=== PATIENT | female | born 1990 | race Caucasian/White ===

== ENCOUNTER 2017-06-24 23:34 | Outpatient (CLI) | payer OTHER ==
[~2017-06-24] VITALS: Ht 157.5 cm; Wt 90.6 kg
[~2017-06-24 23:34] MED LIST: PREN1TAB49 PO
[2017-06-24] MEDS ORDERED: ASPI-535 PO (23:51)
[2017-06-24 23:52] VITALS: Ht 157.5 cm; Wt 90.6 kg
[2017-06-24 23:54] VITALS: BP 117/68; RESP 18
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
--- NOTE | 2017-06-25 02:12 | RADRPT ---
PROCEDURE: Biophysical profile. CLINICAL INDICATION: Pelvic pain. TECHNIQUE: Multiple sonographic images of the pelvis were obtained with transabdominal technique. Endovaginal evaluation of the cervix was also performed. COMPARISON: No prior studies are available for comparison. FINDINGS: There is twin living intrauterine gestation. The cervix is closed measuring 4.0 cm. The placenta is fundal in location, grade 1. There is no evidence of placenta previa or abruption. Fetus A: Fetus A is in a vertex position. heart tones of 161 beats per minute are identified. There is normal amniotic fluid volume with the maximum vertical pocket measuring 5.4 cm. breathing movements = 2 Gross body movements = 2 tone = 2 Qualitative AFV = 2 Fetus B: Fetus B is in a breech position. heart tones of 166 beats per minute are identified. There is normal amniotic fluid volume with the maximum vertical pocket measuring 7.0 cm. breathing movements = 2 Gross body movements = 2 tone = 2 Qualitative AFV = 2 IMPRESSION: Twin living intrauterine gestation. Biophysical profiles are 8 out of 8 for both fetuses. Close cervix measuring 4.0 cm. .Adonay Duvall MD, MD Date Time Electronically viewed and signed by .Adonay Duvall MD, MD on 06/25/2017 02:12 .T/
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
== END 2017-06-25 02:30 | disposition home or self-care (01) ==
LOC: OBT 23:34 → L-D 23:34 → OBT 06-25 02:30
PROVIDERS: ATTEND Obstetrics & Gynecology
DX: O26.893 Other specified pregnancy related conditions, third trimester (principal); Z3A.29 29 weeks gestation of pregnancy; M54.5 Low back pain
CPT/HCPCS: 76817; 76818; Z7500; G0463

== ENCOUNTER 2017-07-26 15:16 | Inpatient (IN) | payer OTHER ==
[~2017-07-26] VITALS: Ht 157.5 cm; Wt 91.0 kg
[~2017-07-26 15:16] MED LIST changes: +ASPI-535 PO
[2017-07-26] MEDS: LACTATED RINGER'S 1,000 ML IV SCH ×3 (16:48→20:43)
[2017-07-26 17:01] LABS: ADD UMIC NO; UR ASCORBIC ACID NEGATIVE (NEGATIVE); UR BILIRUBIN (Dip) NEGATIVE (NEGATIVE); UR BLOOD (Dip) NEGATIVE (NEGATIVE); UR CLARITY CLEAR (CLEAR); UR COLOR STRAW (YELLOW); UR GLUCOSE (Dip) NEGATIVE (NEGATIVE); UR KETONES (Dip) NEGATIVE (NEGATIVE); UR LEUKOCYTE ESTERASE (Dip) NEGATIVE Leu/ul (NEGATIVE); UR NITRITE (Dip) NEGATIVE (NEGATIVE); UR SPECIFIC GRAVITY (Dip) 1.004 (1.003-1.030); UR TOTAL PROTEIN (Dip) NEGATIVE (NEGATIVE); UR UROBILINOGEN (Dip) NEGATIVE (NEGATIVE)
[2017-07-26 17:08] VITALS: BP 136/71; PULSE 96; RESP 20; Ht 157.5 cm; Wt 91.0 kg
--- NOTE | 2017-07-26 17:36 | RADRPT ---
PROCEDURE: US OB. CLINICAL INDICATION: Twin gestation. Contractions. TECHNIQUE: Multiple sonographic images of the uterus were obtained. The images were revi ewed on a PACS workstation. COMPARISON: No prior studies are available for comparison. FINDINGS: There is a live twin gestation gestation. Twin A: heart rate is 150 beats per minute. Measurements were made in order to determine age. The results are as follows: BPD = 8.56 cm. HC = 31.14 cm. AC = 32.62 cm. FL = 6.51 cm. Estimated weight is 2663 +/- 399 grams. LMP growth percentile is 88 %. Menstrual age by ultrasound dates is 34 weeks 6 days. The estimated date of delivery is 08/31/2017. Position is cephalic and placenta is shared fundal left grade 1. There is no evidence for an abrupti on or placenta previa. Twin B: heart rate is 148 beats per minute. Measurements were made in order to determine age. The results are as follows: BPD = 8.10 cm. HC = 29.95 cm. AC = 30.18 cm. FL = 6.31 cm. Estimated weight is 2202 +/- 330 grams. LMP growth percentile is 35 %. Menstrual age by ultrasound dates is 33 weeks 1 day. The estimated date of delivery is 09/12/2017. Position is transverse with head to maternal left and placenta is shared fundal left grade 1. There is no evidence for an abruption or placenta previa. IMPRESSION: 1. Twin gestation as described above. RPTAT: QQ .Dagoberto Bennett MD, Date Time Electronically viewed and signed by .Dagoberto Bennett MD, MD on 07/26/2017 17:36 .R/
--- NOTE | 2017-07-26 17:47 | RADRPT ---
PROCEDURE: US biophysical profile. CLINICAL INDICATION: Twin gestation. Decreased motion. TECHNIQUE: Multiple sonographic images of the uterus were obtained. The images were revi ewed on a PACS workstation. COMPARISON: 06/25/2017. FINDINGS: There is a live twin intrauterine gestation. Cervical length is 4.0 cm. Fetus A: heart rate is 152 beats per minute. The position is cephalic. The placenta is shared fundal left grade 1. The single largest pocket of amniotic fluid is 3.2 cm. Breathing Movement: 2 Gross Body Movement: 2 Tone: 2 Qualitative Amniotic Fluid Volume: 2 TOTAL: 8 Fetus B: heart rate is 146 beats per minute. The position is transverse with head to maternal left. The placenta is shared fundal left grade 1. The single largest pocket of amniotic fluid is 5.2 cm. Breathing Movement: 2 Gross Body Movement: 2 Tone: 2 Qualitative Amniotic Fluid Volume: 2 TOTAL: 8 IMPRESSION: 1. Fetus A biophysical score is 8/8. 2. Fetus B biophysical score is 8/8. RPTAT: QQ .Dagoberto Bennett MD, MD Date Time Electronically viewed and signed by .Dagoberto Bennett MD, MD on 07/26/2017 17:47 .R/
[2017-07-26] MEDS ORDERED: TERBUTALINE 1 MG/ML INJ SC ONE (19:00)
[2017-07-26] MEDS ORDERED: TERBUTALINE 1 MG/ML INJ SC PRN (19:00)
[2017-07-26] MEDS ORDERED: MAGNESIUM SULFATE 4 GM/100 ML 100 ML IV ONE (21:00)
[2017-07-26] MEDS: BETAMET NA PHOS/AC(6 MG/ML) 5ML INJ IM SCH (21:36)
[2017-07-26] MEDS: MAGNESIUM SULFATE 20 GM/500 ML 500 ML IV SCH (21:50)
[2017-07-26 21:59] LABS: BASOPHIL # 0.1 10^3/ul (0.0-0.1); EOSINOPHILS # 0.9 10^3/ul (0.0-0.5); EOSINOPHILS % 7.9 % (0.0-7.0); HEMATOCRIT 32.2 % (37.0-47.0); HEMOGLOBIN 10.2 g/dl (12.0-16.0); LYMPHOCYTES # 2.3 10^3/ul (0.8-2.9); LYMPHOCYTES % 20.6 % (15.0-51.0); MEAN CORPUSCULAR HEMOGLOBIN 27.5 pg (29.0-33.0); MEAN CORPUSCULAR HGB CONC 31.7 g/dl (32.0-37.0); MEAN CORPUSCULAR VOLUME 86.8 fl (82.0-101.0); MEAN PLATELET VOLUME 12.9 fl (7.4-10.4); MONOCYTE # 1.1 10^3/ul (0.3-0.9); MONOCYTES % 9.4 % (0.0-11.0); NEUTROPHIL # 6.7 10^3/ul (1.6-7.5); NEUTROPHILS % 59.9 % (39.0-77.0); PLATELET COUNT 241 10^3/UL (140-415); RED BLOOD COUNT 3.71 10^6/ul (4.20-5.40); RED CELL DISTRIBUTION WIDTH 13.7 % (11.5-14.5); WHITE BLOOD COUNT 11.2 10^3/ul (4.8-10.8)
[2017-07-26 22:17] LABS: INR 0.94; PROTIME 12.6 Sec (12.2-14.2)
[2017-07-27] MEDS: LACTATED RINGER'S 1,000 ML IV SCH ×2 (06:22→18:51)
[2017-07-27] MEDS: MAGNESIUM SULFATE 20 GM/500 ML 500 ML IV SCH ×2 (06:53→16:47)
[2017-07-27] MEDS: ASPIRIN (EC) 81 MG TAB PO SCH (09:29)
[2017-07-27] MEDS: PRENATAL VITAMIN PO SCH (09:29)
[2017-07-27] MEDS: DOCUSATE SODIUM 100 MG CAP PO SCH (09:29)
--- NOTE | 2017-07-27 13:35 | CONS ---
Date/Time of Note Date/Time of Note DATE: 07/27/17 TIME: 13:25 Assessment/Plan Assessment/Plan Chief Complaint/Hosp Course I have spoken to the mother and explained her about prematurity, low birthweight , survival greater than 98%, risk for sepsis and antibiotic therapy during the hospital course, risk of respiratory distress syndrome, oxygen therapy and ventilatory assistance, apnea of prematurity , jaundice and phototherapy, feeding problems with intolerance and necrotizing enterocolitis, risk for long- term neurodevelopmental problems secondary to prematurity and low birthweight and answered all her questions and address the concerns. Mom says her contractions are less frequent and she hopes to go home after second dose of betamethasone. There is family history of twins from paternal side. Problems: Additional Assessment/Plan Thank you very much for allowing me to take part in the care of this patient. I will follow the mom and the baby's as needed and attend the delivery. Consultation Date/Type/Reason Admit Date/Time Jul 26, 2017 at 20:42 Date of Consultation: Jul 27, 2017 Reason for Consultation consult requested by the primary help desk technician Dr. Mica Ward labor, 33 and 5/ 7 weeks Referring Provider: YNES RENAE MD Hx of Present Illness 27-year-old mom, 4, 1 , admitted to antepartum in labor with twin . Admitted on 1129 at 2100 and given 1 dose of betamethasone and the second dose to be given today. Mom is on treatment with magnesium sulfate and ultrasound is done, estimated weight on twin A is 2663 g, twin B is 2202 g. EDC is 09/08/17. Constitutional: improved, no complaints Eyes: no complaints ENT: no complaints Respiratory: no complaints Cardiovascular: no complaints Gastrointestinal: no complaints Genitourinary: no complaints Musculoskeletal: no complaints Skin: no complaints Neurologic: no complaints Endocrine: no complaints Lymphatic: no complaints Psychological: nl mood/affect, no complaints Immunologic: no complaints Past Medical History history: This is mom's fourth and her EDC is 09/08/17. She is admitted for labor and received 1 dose of betamethasone. She is O, Rh+, RPR nonreactive, hepatitis B surface antigen negative, HIV negative and GBS unknown. Denies history of smoking, alcohol use or illicit drug use during . No history of diabetes or hypertension during . Past Surgical History Past Surgical Hx: no surgical history Family History Significant Family History: other Social History Smoking Status: Never smoker Exam/Review of Systems Vital Signs Vitals Vital Signs Date Time Temp Pulse Resp B/P Pulse Ox O2 Delivery O2 Flow Rate FiO2 07/26/17 17:08 98.0 96 20 136/71 Room Air Intake and Output 07/26/17 07/26/17 07/27/17 14:59 22:59 06:59 Intake Total 1260 ml 1965 ml Output Total 500 ml 1200 ml Balance 760 ml 765 ml Results Result Diagram: 07/26/17 1700 Results 24 hrs Laboratory Tests Test 07/26/17 16:30 07/26/17 17:00 07/27/17 06:04 Urine Color STRAW Urine Clarity CLEAR Urine pH 7.0 Urine Specific [place] 1.004 Urine Ketones NEGATIVE Urine Nitrite NEGATIVE Urine Bilirubin NEGATIVE Urine Urobilinogen NEGATIVE Urine Leukocyte Esterase NEGATIVE Urine Hemoglobin NEGATIVE Urine Glucose NEGATIVE Urine Total Protein NEGATIVE White Blood Count 11.2 H Red Blood Count 3.71 L Hemoglobin 10.2 L Hematocrit 32.2 L Mean Corpuscular Volume 86.8 Mean Corpuscular Hemoglobin 27.5 L Mean Corpuscular Hemoglobin Concent 31.7 L Red Cell Distribution Width 13.7 Platelet Count 241 Mean Platelet Volume 12.9 H Neutrophils % 59.9 Lymphocytes % 20.6 Monocytes % 9.4 Eosinophils % 7.9 H Basophils % 1.0 Nucleated Red Blood Cells % 0.0 Neutrophils # 6.7 Lymphocytes # 2.3 Monocytes # 1.1 H Eosinophils # 0.9 H Basophils # 0.1 Nucleated Red Blood Cells # 0.0 Prothrombin Time 12.6 Prothrombin Time Ratio 1.0 INR International Normalized Ratio 0.94 Magnesium Level 5.7 *H Medications Medications Current Medications Lactated Ringer's (Lr) 1,000 ml @ 0 mls/hr Q0M IV Last administered on 19:55; Admin Dose 0 MLS/HR; Start 07/26/17 at 16:30 Terbutaline Sulfate 0.25 mg 0.25 mg ONCE PRN SC PAIN Last administered on 07/26 19:53; Admin Dose 0.25 MG; Start 07/26/17 at 19:00; Stop 07/27/17 at 18: 59 Lactated Ringer's 1,000 ml @ 75 mls/hr Q30U12S IV Last administered on 06:22; Admin Dose 75 MLS/HR; Start 07/26/17 at 20:43 Magnesium Sulfate (Magnesium Sulfate 20 Gm/500 ml) 500 ml @ 50 mls/hr Q10H IV Last administered on 07/27/17 06:53; Admin Dose 50 MLS/HR; Start 07/26/17 at 20:43 Betamethasone Acet/Betameth SodPhos ([place]el[place] Soluspan) 12 mg Q24H IM Last administered on 07/26/17 21:36; Admin Dose 12 MG; Start 07/26/17 at 21:00; Stop 07/27/17 at 21:01 Prenat Multivit/ [place]/Iron/Folic Ac () 1 tab DAILY PO Last administered on 07/27/17 09:29; Admin Dose 1 TAB; Start 07/27/17 at 09:00 Docusate Sodium (Colace) 100 mg DAILY PO Last administered on 07/27/17 09:29 ; Admin Dose 100 MG; Start 07/27/17 at 09:00 Aspirin (Halfprin) 81 mg DAILY PO Last administered on 07/27/17 09:29; Admin Dose 81 MG; Start 07/27/17 at 09:00 BUBBA LA MD Jul 27, 2017 13:35
--- NOTE | 2017-07-27 14:43 | CONS ---
DATE OF ADMISSION: 07/26/2017 DATE OF CONSULTATION: 07/27/2017 HISTORY OF PRESENT ILLNESS: The patient is a G4, P2 with intrauterine , twins at 33 weeks and 6 days, presented with complaint of contractions. Cervical length was 4 cm. She was subsequent ly placed on magnesium sulfate, was given betamethasone first dose last night. Currently, as I spok e to the patient, she feels much more comfortable and she does not have any leakage of fluid, vagina l bleeding. PAST OBSTETRICAL HISTORY: Significant for two prior C-sections. The first was secondary to failure to progress and apparently she had some deceleration of the baby and lead to sec tion. Secondary to is because of the first one. REVIEW OF SYSTEMS: All systems reviewed, negative except for what is mentioned above. VITAL SIGNS: Stable. PHYSICAL EXAMINATION: Deferred. heart tones are reassuring. Contractions irregularity every 7-10 minutes. IMPRESSION: Twin intrauterine at 33 weeks and 6 days with contractions and a norm al cervical length. Currently on magnesium sulfate for tocolysis, status post betamethasone x1 at 9:00 p.m. last night. History of 2 prior C-sections, but no history of a delivery. RECOMMENDATIONS: Continue with the magnesium sulfate until tomorrow morning and after 2 or 3 hours, if she still has irregular contractions, then we can consider Procardia 20 mg every 6 hours and if she cannot tolerate it, then 10 mg 6 hours to be continued until 36 weeks of . If she remains asymptomatic without any cervical length you can consider discharge Monday morning. I spoke to the patient and the nurse and any concern was addressed. Dictated By: LESLIE MITCHELL/DALE Conf#: [id number] DID#: [id number]
[2017-07-27] MEDS: BETAMET NA PHOS/AC(6 MG/ML) 5ML INJ IM SCH (21:36)
--- NOTE | 2017-07-28 01:11 | HP ---
Date/Time of Note Date/Time of Note DATE: 07/28/17 TIME: 01:08 OB - History Hx of Present Free Text/Dictation 27 y.o. with an IUP at 34 weeks with a twin gestation was admitted for labor on 07/26. Pt has been given beta methasone x 2 now and is on magnesium sulfate for tocolysis after terbutaline x 2 failed. Cervix on US is thick at 4 cm and closed. She has had 2 sections before. Chief Complaint: Contractions. Estimated Due Date: Sep 06, 2017 : 4 Para: 2 Spontaneous : 1 Care: Good Care Ultrasounds: Normal mid trimester US Obstetrical Complications: None Medical Complications: None Other Concerns: PSHx: x 2. PMHx: none. NKDA. Past Family/Social History * Past Medical, Surgical, Family and Obstetric Histories reviewed from chart. Blood Type: O+ Rubella: immune RPR/VDRL: Negative GBS Status: Unknown HBsAG: Negative OB Admission Exam Vital Signs Vital Signs Vital Signs Date Time Temp Pulse Resp B/P Pulse Ox O2 Delivery O2 Flow Rate FiO2 07/26/17 17:08 98.0 96 20 136/71 Room Air Physical Exam HEENT: WNL Heart: Rhythm Normal Lungs: Clear Abdomen: WNL Extremities: Normal Reflexes: Normal Cervical Dilatation: None Effacement: 0% Membranes: Intact Heart Rate: 120's Accelerations: Accelerations Present Decelerations: No Decelerations Varibility: Moderate Contractions on Admission: 6-10 Minutes Apart Last 72 hours Lab Results CBC & BMP 07/26/17 17:00 Magnesium Level Test 07/27/17 06:04 07/27/17 13:33 07/27/17 18:20 Magnesium Level 5.7 *H 6.4 *H 6.4 *H OB Assessment/Plan Reason for admission: labor Other Assessment: Previous x 2. Other plan: Tocolysis of the labor with magnesium at first, then Procardia if that is not stopping the UC's. Bedrest. Beta-methasone x 2 is copmplete. JOVAN UNGER MD Jul 28, 2017 01:11
[2017-07-28] MEDS: MAGNESIUM SULFATE 20 GM/500 ML 500 ML IV SCH ×2 (03:26→13:48)
[2017-07-28] MEDS: DOCUSATE SODIUM 100 MG CAP PO SCH (08:40)
[2017-07-28] MEDS: PRENATAL VITAMIN PO SCH (08:40)
[2017-07-28] MEDS: ASPIRIN (EC) 81 MG TAB PO SCH (08:40)
[2017-07-28] MEDS: LACTATED RINGER'S 1,000 ML IV SCH ×2 (08:41→22:52)
--- NOTE | 2017-07-28 16:49 | QN ---
Documentation Comment HD #2 PTL with twins at 34 weeks. Pt feeling groggy from the magnesium. Not really aware of the contractions. No VB or leaking. +FM. NST reactive with some contractions and uterine irritability. P: Pt now 24 past the last beta-methasone injection, so will d/c the magnesium and change pt to Procardia 20 mg x 1 then 10 mg q 6 hours. NST q shift. Continuous toco. JOVAN UNGER MD Jul 28, 2017 16:49
[2017-07-28] MEDS ORDERED: NIFEdipine 10 MG CAP PO ONE (17:00)
[2017-07-28] MEDS ORDERED: NIFEdipine 10 MG CAP PO SCH (23:00)
[2017-07-29] MEDS: NIFEdipine 10 MG CAP PO SCH ×4 (00:13→18:08)
[2017-07-29] MEDS: DOCUSATE SODIUM 100 MG CAP PO SCH (09:27)
[2017-07-29] MEDS: PRENATAL VITAMIN PO SCH (09:27)
[2017-07-29] MEDS: ASPIRIN (EC) 81 MG TAB PO SCH (09:27)
[2017-07-29] MEDS: LACTATED RINGER'S 1,000 ML IV SCH (19:00)
--- NOTE | 2017-07-29 20:20 | PD.PPDC ---
SUPERVISOR CONTINGENTS Discharge Instruction Condition Patient Condition: Good Diet Diet: Resume Regular Diet Activity/Restrictions Activity: Bedrest May be up to bathroom May be up for meals May Shower Restrictions: No Exercising No Lifting No Driving Minimize Walking Minimize Stair-climbing No Sexual Activity Nothing in the Vagina No [place] No Tampons, douche Follow-up Follow-up with Physician: 3, Day/Days Return to clinic for PICK UP Instructions: Fever greater than 101 Chills Worsening abdominal pain Excessive Vaginal Bleeding JOVAN UNGER MD Jul 29, 2017 20:19
--- NOTE | 2017-07-29 20:23 | DS ---
Date/Time of Note Date/Time of Note DATE: 07/29/17 TIME: 20:20 Obstetrical Discharge Record Final Diagnosis Final Diagnosis: not delivered Other Final Diagnosis Twins. 34w 1d. PTL. Complications Labor Augmentation: No Induction: No Tocolytics: Magnesium Sulfate, Other (Procardia) Rupture of Membranes: No Condition on Discharge Physical Assessment Last Vitals: Afebrile. BP 130/70. Voiding: Yes Bowel Movement: Yes Breast: Soft, non-tender Fundus: Other (Gravid) Calf Tenderness: No Patient Condition: Good JOVAN UNGER MD Jul 29, 2017 20:23
[2017-07-29] MEDS ORDERED: NIFE10CA19 PO (20:24)
== END 2017-07-29 21:00 | disposition home or self-care (01) | DRG 780 ==
LOC: OBT 15:16 → OBG 15:18 → OBT 20:42 → OBG 20:42
PROVIDERS: ADMIT Obstetrics & Gynecology; ATTEND Obstetrics & Gynecology
DX: O47.03 False labor before 37 completed weeks of gestation, third trimester (principal); O30.003 Twin pregnancy, unspecified number of placenta and unspecified number of amniotic sacs, third trimester; Z3A.33 33 weeks gestation of pregnancy
CPT/HCPCS: 36415; 76815; 76817; 76818; 81003; 83735; 85025; 85610; 86900; 86901; 87086; 96360; 96361; 96372; G0463; J0702; J3105; J3475; J7120

== ENCOUNTER 2017-08-05 23:53 | Inpatient (IN) | payer OTHER ==
[~2017-08-05] VITALS: Ht 157.5 cm; Wt 92.0 kg
[~2017-08-05 23:53] MED LIST changes: +NIFE10CA19 PO
[2017-08-06 00:24] VITALS: Ht 157.5 cm; Wt 92.0 kg
[2017-08-06 00:25] VITALS: BP 127/71; PULSE 108; RESP 18
[2017-08-06] MEDS: LACTATED RINGER'S 1,000 ML IV SCH ×7 (01:21→17:17)
[2017-08-06 02:49] LABS: ABNORMAL IP MESSAGE 1; BASOPHIL # 0.1 10^3/ul (0.0-0.1); BASOPHILS % 0.9 % (0.0-2.0); EOSINOPHILS # 0.4 10^3/ul (0.0-0.5); EOSINOPHILS % 3.3 % (0.0-7.0); HEMATOCRIT 32.4 % (37.0-47.0); HEMOGLOBIN 10.3 g/dl (12.0-16.0); LYMPHOCYTES # 2.5 10^3/ul (0.8-2.9); LYMPHOCYTES % 21.7 % (15.0-51.0); MEAN CORPUSCULAR HEMOGLOBIN 26.8 pg (29.0-33.0); MEAN CORPUSCULAR HGB CONC 31.8 g/dl (32.0-37.0); MEAN CORPUSCULAR VOLUME 84.2 fl (82.0-101.0); MEAN PLATELET VOLUME 13.5 fl (7.4-10.4); MONOCYTE # 1.3 10^3/ul (0.3-0.9); MONOCYTES % 11.3 % (0.0-11.0); NEUTROPHILS % 60.3 % (39.0-77.0); NUCLEATED RED BLOOD CELLS # 0.1 10^3/ul (0.0-0.0); NUCLEATED RED BLOOD CELLS% 1.2 /100WBC (0.0-0.0); PLATELET COUNT 207 10^3/UL (140-415); RED BLOOD COUNT 3.85 10^6/ul (4.20-5.40); RED CELL DISTRIBUTION WIDTH 14.6 % (11.5-14.5); WHITE BLOOD COUNT 11.6 10^3/ul (4.8-10.8)
[2017-08-06 02:58] LABS: POSITIVE DIFF @See below
[2017-08-06 03:23] LABS: ADD UMIC NO; UR ASCORBIC ACID NEGATIVE (NEGATIVE); UR BILIRUBIN (Dip) NEGATIVE (NEGATIVE); UR BLOOD (Dip) NEGATIVE (NEGATIVE); UR CLARITY CLEAR (CLEAR); UR COLOR STRAW (YELLOW); UR GLUCOSE (Dip) NEGATIVE (NEGATIVE); UR KETONES (Dip) NEGATIVE (NEGATIVE); UR LEUKOCYTE ESTERASE (Dip) NEGATIVE Leu/ul (NEGATIVE); UR NITRITE (Dip) NEGATIVE (NEGATIVE); UR SPECIFIC GRAVITY (Dip) 1.004 (1.003-1.030); UR TOTAL PROTEIN (Dip) NEGATIVE (NEGATIVE); UR UROBILINOGEN (Dip) NEGATIVE (NEGATIVE)
[2017-08-06] MEDS ORDERED: CEFAZOLIN 2 GM/50 ML (PMX) 50 ML IV SCH (04:30)
[2017-08-06] MEDS ORDERED: OXYTOCIN 30 UNITS/LR 500 ML IV PRN (04:30)
[2017-08-06] MEDS ORDERED: METHYLERGONOVINE 0.2 MG INJ IM PRN (04:30)
[2017-08-06] MEDS ORDERED: MISOPROSTOL 200 MCG TAB PR PRN (04:30)
[2017-08-06] MEDS ORDERED: CARBOPROST 250 MCG INJ IM PRN (04:30)
[2017-08-06] MEDS ORDERED: OXYTOCIN 30 UNITS/LR 500 ML IV SCH (04:30)
[2017-08-06] MEDS ORDERED: AMPICILLIN 2 GM/NS (PMX) 100 ML IV SCH (04:30)
[2017-08-06] MEDS ORDERED: METHYLERGONOVINE 0.2 MG INJ ONE (07:00)
--- NOTE | 2017-08-06 07:09 | PN ---
Triage Information Date/Time Aug 06, 2017 at 04:25 Reason for visit: Uterine contractions Weeks of Gestation patient is at 35 weeks and one day of gestation with twins patient was recently placed on magnesium sulfate and received 2 doses of betamethasone Previous OB significant for 1 /Para 4 para 2 Diabetes: none Hypertention: none Objective Vital Signs Date Time Temp Pulse Resp B/P Pulse Ox O2 Delivery O2 Flow Rate FiO2 08/06/17 00:25 99.2 108 18 127/71 Room Air Heart Rate: 140's Heart Rate Comments heart rate tracing category 1 for both twins Contractions: < 5 Minutes Apart Results/Medications Result Diagram: 08/06/17 0121 Results 24 hrs Laboratory Tests Test 08/06/17 00:05 08/06/17 01:21 Urine Color STRAW Urine Clarity CLEAR Urine pH 7.0 Urine Specific [place] 1.004 Urine Ketones NEGATIVE Urine Nitrite NEGATIVE Urine Bilirubin NEGATIVE Urine Urobilinogen NEGATIVE Urine Leukocyte Esterase NEGATIVE Urine Hemoglobin NEGATIVE Urine Glucose NEGATIVE Urine Total Protein NEGATIVE White Blood Count 11.6 H Red Blood Count 3.85 L Hemoglobin 10.3 L Hematocrit 32.4 L Mean Corpuscular Volume 84.2 Mean Corpuscular Hemoglobin 26.8 L Mean Corpuscular Hemoglobin Concent 31.8 L Red Cell Distribution Width 14.6 H Platelet Count 207 Mean Platelet Volume 13.5 H Neutrophils % 60.3 Lymphocytes % 21.7 Monocytes % 11.3 H Eosinophils % 3.3 Basophils % 0.9 Nucleated Red Blood Cells % 1.2 H Neutrophils # 7.0 Lymphocytes # 2.5 Monocytes # 1.3 H Eosinophils # 0.4 Basophils # 0.1 Nucleated Red Blood Cells # 0.1 H Medications Current Medications Lactated Ringer's 1,000 ml @ 125 mls/hr Q8H IV Last administered on 01:21; Admin Dose 125 MLS/HR; Start 08/06/17 at 00:57 Lactated Ringer's 1,000 ml @ 125 mls/hr Q8H IV ; Start 08/06/17 at 04:25 Ampicillin 100 ml @ 100 mls/hr ONCE IV Last administered on 08/06/17 05:57; Admin Dose 100 MLS/HR; Start 08/06/17 at 04:30 Cefazolin Sodium/ Dextrose 50 ml @ 100 mls/hr ONCE IV ; Start 08/06/17 at 04: 30 Oxytocin/Lactated Ringer's 500 ml @ 0 mls/hr ONCE PRN IV For Hemorrhage Management; Start 08/06/17 at 04:30 Methylergonovine Maleate (Methergine) 0.2 mg ONCE PRN IM VAGINAL BLEEDING; Start 08/06/17 at 04:30 Carboprost Tromethamine (Hemabate) 250 mcg ONCE PRN IM VAGINAL BLEEDING; Start 08/06/17 at 04:30 Misoprostol (Cytotec) 1,000 mcg ONCE PRN NM VAGINAL BLEEDING; Start 08/06/17 at 04:30 Assessment/Plan Keep patient n.p.o. IV fluids May consider repeat if the contractions continue SANTIAGO ALMEIDA MD Aug 06, 2017 07:09
--- NOTE | 2017-08-06 07:39 | TRIAGE ---
OB Triage Datetime Report Generated by CPN: 08/06/2017 07:38 Datetime: 08/06/2017 07:40 Stage of : OB Triage Labor Evaluation Frequency: 3-6 Monitor Mode: External Duration (sec)2399: 40-90 Quality: Mild Pattern: Normal: <= 5 Contractions in 10 Minutes Resting Tone [place]: Relaxed Heart Rate FHR Baseline Rate: 125 Monitor Mode: External US FHR Baseline Changes: No Baseline Change Variability: Moderate 6-25 bpm Accelerations: 15X15 Decelerations: None Category: Category I Datetime: 08/06/2017 07:36 Assessment Type: Admission Assessment Maternal Assessment Level of Consciousness: Fully Conscious DTR's/Clonus: DTRs 2+; No Clonus Headache: Denies Blurred Vision: No Respiratory Effort: Unlabored; Regular Rhythm; Equal Expansion Breath Sounds, Left: Clear and Equal Breath Sounds, Right: Clear and Equal Nausea/Vomiting: Denies RUQ Epigastric Pain: Denies Lower Extremities Edema: None Degree: None Upper Extremities Edema: None Degree: None Facial Edema: None Fall Risk Assessment History of Falling: (0) No Secondary Diagnosis: (0) No Ambulatory Aid: (0) Bedrest/Nurse Assist Gait: (0) Normal/Bedrest/Immobile Mental Status: (0) Oriented to Own Ability Datetime: 08/06/2017 07:31 Pain Assessment Pain Scale: 5 Pain Presence: Intermittent Pain Type: Contraction Pain Location: Abdomen Pain Assessment Comments: STATES THAT SHE IS COMFORTABLE AT THIS TIME Datetime: 08/06/2017 06:00 Stage of : OB Triage Labor Evaluation Frequency: 3-6 Monitor Mode: External Duration (sec)2399: 40-90 Quality: Mild Pattern: Normal: <= 5 Contractions in 10 Minutes Resting Tone [place]: Relaxed Heart Rate FHR Baseline Rate: 125 Monitor Mode: External US FHR Baseline Changes: No Baseline Change Variability: Moderate 6-25 bpm Accelerations: 15X15 Decelerations: None Category: Category I Datetime: 08/06/2017 05:00 Stage of : OB Triage Labor Evaluation Frequency: 3-6 Monitor Mode: External Duration (sec)2399: 40-90 Quality: Mild Pattern: Normal: <= 5 Contractions in 10 Minutes Resting Tone [place]: Relaxed Heart Rate FHR Baseline Rate: 125 Monitor Mode: External US FHR Baseline Changes: No Baseline Change Variability: Moderate 6-25 bpm Accelerations: 15X15 Decelerations: None Category: Category I Datetime: 08/06/2017 04:00 Stage of : OB Triage Labor Evaluation Frequency: 2-5 Monitor Mode: External Duration (sec)2399: 40-90 Quality: Mild Pattern: Normal: <= 5 Contractions in 10 Minutes Resting Tone [place]: Relaxed Heart Rate FHR Baseline Rate: 125 Monitor Mode: External US FHR Baseline Changes: No Baseline Change Variability: Moderate 6-25 bpm Accelerations: 15X15 Decelerations: None Category: Category I Datetime: 08/06/2017 03:00 Stage of : OB Triage Labor Evaluation Frequency: 2-5 Monitor Mode: External Duration (sec)2399: 40-90 Quality: Mild Pattern: Normal: <= 5 Contractions in 10 Minutes Resting Tone [place]: Relaxed Heart Rate FHR Baseline Rate: 125 Monitor Mode: External US FHR Baseline Changes: No Baseline Change Variability: Moderate 6-25 bpm Accelerations: 15X15 Decelerations: None Category: Category I Datetime: 08/06/2017 02:50 Monitor Mode: External Monitor Mode: External US Datetime: 08/06/2017 02:00 Stage of : OB Triage Labor Evaluation Frequency: 2-5 Monitor Mode: External Duration (sec)2399: 40-90 Quality: Mild Pattern: Normal: <= 5 Contractions in 10 Minutes Resting Tone [place]: Relaxed Heart Rate FHR Baseline Rate: 120 Monitor Mode: External US FHR Baseline Changes: No Baseline Change Variability: Moderate 6-25 bpm Accelerations: 15X15 Decelerations: None Category: Category I Datetime: 08/06/2017 01:40 Vaginal Exam Dilatation (cms): 0.0 Effacement (%): 20 Station: -3 Exam By: Jordin Gray RN Vaginal Bleeding: None Cervix, Consistency: Firm Cervix, Position: Posterior Datetime: 08/06/2017 01:00 Stage of : OB Triage Labor Evaluation Frequency: 2-5 Monitor Mode: External Duration (sec)2399: 40-90 Quality: Mild Pattern: Normal: <= 5 Contractions in 10 Minutes Resting Tone [place]: Relaxed Heart Rate FHR Baseline Rate: 120 Monitor Mode: External US FHR Baseline Changes: No Baseline Change Variability: Moderate 6-25 bpm Accelerations: 15X15 Decelerations: None Category: Category I Datetime: 08/06/2017 00:47 Stage of : OB Triage Datetime: 08/06/2017 00:19 Time of Arrival: 08/05/2017 23:50 EGA: 35.0 Arrived By: Wheelchair Arrived From: Home Chief Complaint: UC's (Annotations: Data stored by CPN on behalf of user) Time Contractions Began: 08/05/2017 06:00 Initial Plan: EFM X3, IV Hydration Datetime: 08/06/2017 00:18 Stage of : OB Triage Maternal Assessment Level of Consciousness: Fully Conscious DTR's/Clonus: DTRs 2+; No Clonus Headache: Denies Blurred Vision: No Respiratory Effort: Unlabored; Regular Rhythm; Equal Expansion Breath Sounds, Left: Clear and Equal Breath Sounds, Right: Clear and Equal Nausea/Vomiting: Denies RUQ Epigastric Pain: Denies Lower Extremities Edema: Bilateral Lower Extremities Degree: 1+ Upper Extremities Edema: None Degree: None Facial Edema: None Fall Risk Assessment History of Falling: (0) No Secondary Diagnosis: (0) No Ambulatory Aid: (0) Bedrest/Nurse Assist IV Therapy: (0) No Gait: (0) Normal/Bedrest/Immobile Mental Status: (0) Oriented to Own Ability Fall Score: 0 Fall Risk Score Definition: No Risk: No action required Datetime: 08/06/2017 00:14 Monitor Mode: External Contraction Comments: Applied Monitor Mode: External US Comments: Applied Datetime: 07/29/2017 20:15 Labor Evaluation Frequency: OCC Monitor Mode: External Heart Rate FHR Baseline Rate: 130 Monitor Mode: External US FHR Baseline Changes: No Baseline Change Variability: Moderate 6-25 bpm Accelerations: 15X15 Decelerations: None Category: Category I Datetime: 07/29/2017 20:00 Labor Evaluation Frequency: IRRITABL Monitor Mode: External Duration (sec)2399: 15-30 Quality: Mild Resting Tone [place]: Relaxed Datetime: 07/29/2017 19:52 Comments: NST STARTED Datetime: 07/29/2017 19:49 Assessment Type: Ongoing Assessment Maternal Assessment Level of Consciousness: Fully Conscious Headache: Denies Blurred Vision: No Respiratory Effort: Unlabored; Regular Rhythm; Equal Expansion Nausea/Vomiting: Denies RUQ Epigastric Pain: Denies Lower Extremities Edema: None Upper Extremities Edema: None Facial Edema: None Temperature Route: Oral Fall Risk Assessment History of Falling: (0) No Secondary Diagnosis: (0) No Ambulatory Aid: (0) Bedrest/Nurse Assist IV Therapy: (20) Yes Gait: (0) Normal/Bedrest/Immobile Mental Status: (0) Oriented to Own Ability Fall Score: 20 Fall Risk Score Definition: No Risk: No action required Pain Assessment Pain Scale: 0 Datetime: 07/29/2017 18:58 Pattern: Normal: <= 5 Contractions in 10 Minutes Resting Tone [place]: Relaxed Contraction Comments: NO UC Datetime: 07/29/2017 18:01 Monitor Mode: External Quality: Mild Pattern: Normal: <= 5 Contractions in 10 Minutes Resting Tone [place]: Relaxed Contraction Comments: NO UC Datetime: 07/29/2017 17:01 Labor Evaluation Frequency: X1 Monitor Mode: External Duration (sec)2399: 60 Quality: Mild Pattern: Normal: <= 5 Contractions in 10 Minutes Resting Tone [place]: Relaxed Datetime: 07/29/2017 16:00 Labor Evaluation Frequency: X4 Duration (sec)2399: 60-80 Quality: Mild Pattern: Normal: <= 5 Contractions in 10 Minutes Resting Tone [place]: Relaxed Pain Presence: None/Denies Pain Type: N/A Datetime: 07/29/2017 15:00 Pattern: Normal: <= 5 Contractions in 10 Minutes Resting Tone [place]: Relaxed Contraction Comments: no uc Pain Presence: None/Denies Pain Type: N/A Datetime: 07/29/2017 14:01 Pattern: Normal: <= 5 Contractions in 10 Minutes Resting Tone [place]: Relaxed Contraction Comments: no uc Pain Presence: None/Denies Pain Type: N/A Datetime: 07/29/2017 13:01 Duration (sec)2399: 20-30 Pattern: Normal: <= 5 Contractions in 10 Minutes Resting Tone [place]: Relaxed Contraction Comments: irritability Pain Presence: None/Denies Pain Type: N/A Datetime: 07/29/2017 13:00 Duration (sec)2399: 20-30 Pattern: Normal: <= 5 Contractions in 10 Minutes Resting Tone [place]: Relaxed Contraction Comments: irritability Pain Presence: None/Denies Pain Type: N/A Datetime: 07/29/2017 10:33 Duration (sec)2399: 20-30 Contraction Comments: irritability Heart Rate FHR Baseline Rate: 135 Monitor Mode: External US Variability: Moderate 6-25 bpm Accelerations: 15X15 Decelerations: None Category: Category I Comments: reactive nst Pain Presence: None/Denies Pain Type: N/A Datetime: 07/29/2017 10:00 Labor Evaluation Frequency: X1 Monitor Mode: External Duration (sec)2399: 80 Quality: Mild Pattern: Normal: <= 5 Contractions in 10 Minutes Resting Tone [place]: Relaxed Contraction Comments: UC with irritability Datetime: 07/29/2017 09:01 Duration (sec)2399: 20-40 Quality: Mild Pattern: Normal: <= 5 Contractions in 10 Minutes Resting Tone [place]: Relaxed Contraction Comments: irritability Pain Presence: None/Denies Pain Type: N/A Datetime: 07/29/2017 08:00 Labor Evaluation Frequency: x3 Monitor Mode: External Duration (sec)2399: 60-80 Quality: Mild Pattern: Normal: <= 5 Contractions in 10 Minutes Resting Tone [place]: Relaxed Contraction Comments: uc with irriatability Pain Presence: None/Denies Pain Type: N/A Datetime: 07/29/2017 07:59 Assessment Type: Ongoing Assessment Maternal Assessment Level of Consciousness: Fully Conscious DTR's/Clonus: DTRs 2+; No Clonus Headache: Denies Blurred Vision: No Respiratory Effort: Unlabored; Regular Rhythm; Equal Expansion Breath Sounds, Left: Clear and Equal Breath Sounds, Right: Clear and Equal Nausea/Vomiting: Denies RUQ Epigastric Pain: Denies Lower Extremities Edema: None Degree: None Upper Extremities Edema: None Facial Edema: None Fall Risk Assessment History of Falling: (0) No Secondary Diagnosis: (0) No Ambulatory Aid: (0) Bedrest/Nurse Assist IV Therapy: (20) Yes Gait: (0) Normal/Bedrest/Immobile Mental Status: (0) Oriented to Own Ability Fall Score: 20 Fall Risk Score Definition: No Risk: No action required Datetime: 07/29/2017 07:00 Labor Evaluation Frequency: X2+IRRITABL Monitor Mode: External Duration (sec)2399: 15-120 Quality: Mild Resting Tone [place]: Relaxed Datetime: 07/29/2017 06:20 Temperature Route: Oral Pain Assessment Pain Scale: 0 Datetime: 07/29/2017 06:00 Labor Evaluation Frequency: X4+IRRITABL Monitor Mode: External Duration (sec)2399: 15-120 Quality: Mild Resting Tone [place]: Relaxed Datetime: 07/29/2017 05:00 Labor Evaluation Frequency: 0 Monitor Mode: External Datetime: 07/29/2017 04:00 Labor Evaluation Frequency: IRRITABL Monitor Mode: External Duration (sec)2399: 15-30 Quality: Mild Resting Tone [place]: Relaxed Datetime: 07/29/2017 03:00 Labor Evaluation Frequency: X4 Monitor Mode: External Duration (sec)2399: 70-120+ Quality: Mild Resting Tone [place]: Relaxed Datetime: 07/29/2017 02:00 Labor Evaluation Frequency: X1+IRRITABL Monitor Mode: External Duration (sec)2399: 15-60 Quality: Mild Resting Tone [place]: Relaxed Datetime: 07/29/2017 01:00 Labor Evaluation Frequency: IRRITABL Monitor Mode: External Duration (sec)2399: 10-40 Quality: Mild Resting Tone [place]: Relaxed Datetime: 07/29/2017 00:11 Temperature Route: Oral Pain Assessment Pain Scale: 0 Datetime: 07/29/2017 00:00 Labor Evaluation Frequency: 0 Monitor Mode: External Datetime: 07/28/2017 23:00 Labor Evaluation Frequency: 0 Monitor Mode: External Datetime: 07/28/2017 22:00 Labor Evaluation Frequency: IRRITABL Monitor Mode: External Duration (sec)2399: 20-40 Quality: Mild Resting Tone [place]: Relaxed Datetime: 07/28/2017 21:00 Labor Evaluation Frequency: X2 Monitor Mode: External Duration (sec)2399: 90 Quality: Mild Resting Tone [place]: Relaxed Heart Rate FHR Baseline Rate: 130 Monitor Mode: External US Datetime: 07/28/2017 20:00 Labor Evaluation Frequency: OCC+IRRITABL Monitor Mode: External Duration (sec)2399: 20-60 Quality: Mild Resting Tone [place]: Relaxed Heart Rate FHR Baseline Rate: 130 Monitor Mode: External US FHR Baseline Changes: No Baseline Change Variability: Moderate 6-25 bpm Accelerations: 15X15 Decelerations: None Category: Category I Datetime: 07/28/2017 19:45 Assessment Type: Ongoing Assessment Maternal Assessment Level of Consciousness: Fully Conscious Headache: Denies Blurred Vision: No Respiratory Effort: Unlabored; Regular Rhythm; Equal Expansion Nausea/Vomiting: Denies RUQ Epigastric Pain: Denies Lower Extremities Edema: None Upper Extremities Edema: None Facial Edema: None Fall Risk Assessment History of Falling: (0) No Secondary Diagnosis: (0) No Ambulatory Aid: (0) Bedrest/Nurse Assist IV Therapy: (20) Yes Gait: (0) Normal/Bedrest/Immobile Mental Status: (0) Oriented to Own Ability Fall Score: 20 Fall Risk Score Definition: No Risk: No action required Datetime: 07/28/2017 19:44 Temperature Route: Oral Pain Assessment Pain Scale: 0 Pain Goal: 0 Datetime: 07/28/2017 18:04 Labor Evaluation Frequency: irritability Monitor Mode: External Quality: Mild Resting Tone [place]: Relaxed Pain Presence: None/Denies Datetime: 07/28/2017 17:04 Labor Evaluation Frequency: 1 with irritability Monitor Mode: External Quality: Mild Resting Tone [place]: Relaxed Pain Presence: None/Denies Datetime: 07/28/2017 15:54 Labor Evaluation Frequency: irritability Monitor Mode: External Quality: Mild Resting Tone [place]: Relaxed Contraction Comments: babies very active Datetime: 07/28/2017 15:47 Labor Evaluation Frequency: 0 Monitor Mode: External Resting Tone [place]: Relaxed Datetime: 07/28/2017 14:20 Labor Evaluation Frequency: occasional irritability Monitor Mode: External Quality: Mild Resting Tone [place]: Relaxed Contraction Comments: babies active Pain Presence: None/Denies Datetime: 07/28/2017 12:56 DTR's/Clonus: DTRs 2+ Labor Evaluation Frequency: irritability Monitor Mode: External Quality: Mild Resting Tone [place]: Relaxed Datetime: 07/28/2017 12:28 Maternal Assessment Level of Consciousness: Fully Conscious DTR's/Clonus: DTRs 1+ Headache: Denies Blurred Vision: No Breath Sounds, Left: Clear and Equal Breath Sounds, Right: Clear and Equal Nausea/Vomiting: Denies RUQ Epigastric Pain: Denies Datetime: 07/28/2017 12:02 Labor Evaluation Frequency: irritability Monitor Mode: External Quality: Mild Resting Tone [place]: Relaxed Datetime: 07/28/2017 11:51 Labor Evaluation Frequency: 1 with irritability Monitor Mode: External Duration (sec)2399: 120 Quality: Mild Resting Tone [place]: Relaxed Pain Presence: None/Denies Datetime: 07/28/2017 10:19 Labor Evaluation Frequency: 1 Monitor Mode: External Duration (sec)2399: 60 Resting Tone [place]: Relaxed Datetime: 07/28/2017 10:18 Heart Rate FHR Baseline Rate: 120 Monitor Mode: External US FHR Baseline Changes: No Baseline Change Variability: Moderate 6-25 bpm Accelerations: 15X15 Decelerations: None Category: Category I Datetime: 07/28/2017 09:43 Comments: monitors on for nst Datetime: 07/28/2017 08:56 Labor Evaluation Frequency: 1 with irritability Monitor Mode: External Duration (sec)2399: 90 Quality: Mild Resting Tone [place]: Relaxed Pain Presence: None/Denies Datetime: 07/28/2017 07:55 Labor Evaluation Frequency: 7/hr Monitor Mode: External Duration (sec)2399: 40-90 Quality: Mild Resting Tone [place]: Relaxed Datetime: 07/28/2017 07:54 Assessment Type: Ongoing Assessment Maternal Assessment Level of Consciousness: Fully Conscious DTR's/Clonus: DTRs 2+; No Clonus Headache: Denies Blurred Vision: No Respiratory Effort: Unlabored; Regular Rhythm; Equal Expansion Breath Sounds, Left: Clear and Equal Breath Sounds, Right: Clear and Equal Nausea/Vomiting: Denies RUQ Epigastric Pain: Denies Facial Edema: None Fall Risk Assessment History of Falling: (0) No Secondary Diagnosis: (0) No Ambulatory Aid: (0) Bedrest/Nurse Assist Gait: (0) Normal/Bedrest/Immobile Mental Status: (0) Oriented to Own Ability Datetime: 07/28/2017 07:53 Pain Presence: None/Denies Datetime: 07/28/2017 07:15 Stage of : Antepartum Datetime: 07/28/2017 07:00 Labor Evaluation Frequency: X2 Monitor Mode: External Duration (sec)2399: 70-90 Quality: Mild Resting Tone [place]: Relaxed Pain Presence: None/Denies Pain Type: N/A Datetime: 07/28/2017 06:00 Maternal Assessment Level of Consciousness: Fully Conscious DTR's/Clonus: DTRs 2+; No Clonus Labor Evaluation Frequency: x3 Monitor Mode: External Duration (sec)2399: 80-100 Quality: Mild Resting Tone [place]: Relaxed Pain Assessment Pain Scale: 5 Pain Presence: Intermittent Pain Type: Cramping Pain Location: Abdomen Pain Goal: 2 Datetime: 07/28/2017 05:00 Labor Evaluation Frequency: X3 Monitor Mode: External Duration (sec)2399: 60-110 Quality: Mild Resting Tone [place]: Relaxed Pain Presence: None/Denies Pain Type: N/A Datetime: 07/28/2017 04:00 DTR's/Clonus: DTRs 2+; No Clonus Breath Sounds, Left: Clear and Equal Breath Sounds, Right: Clear and Equal Labor Evaluation Frequency: X2 Monitor Mode: External Duration (sec)2399: 90-100 Quality: Mild Resting Tone [place]: Relaxed Pain Presence: None/Denies Pain Type: N/A Pain Assessment Comments: PT SLEEPING BUT EASILY AROUSED Datetime: 07/28/2017 03:26 Stage of : Antepartum Datetime: 07/28/2017 03:00 Labor Evaluation Frequency: X4 Monitor Mode: External Duration (sec)2399: 70-90 Quality: Mild Resting Tone [place]: Relaxed Pain Presence: None/Denies Pain Type: N/A Pain Assessment Comments: PT SLEEPING WITH EVEN UNLABORED BREATHING Datetime: 07/28/2017 02:00 DTR's/Clonus: DTRs 2+; No Clonus Labor Evaluation Frequency: X4 Monitor Mode: External Duration (sec)2399: 50-80 Quality: Mild Resting Tone [place]: Relaxed Pain Presence: None/Denies Pain Type: N/A Pain Assessment Comments: PT SLEEPING BUT EASILY AROUSED Datetime: 07/28/2017 01:00 Stage of : Antepartum Labor Evaluation Frequency: X2 Monitor Mode: External Duration (sec)2399: 60-100 Quality: Mild Resting Tone [place]: Relaxed Heart Rate FHR Baseline Rate: 110 Monitor Mode: External US Variability: Moderate 6-25 bpm Accelerations: 15X15 Decelerations: None Category: Category I Pain Assessment Pain Scale: 5 Pain Presence: Intermittent Pain Type: Cramping Pain Location: Abdomen Pain Goal: 2 Datetime: 07/28/2017 00:00 Stage of : Antepartum Maternal Assessment Level of Consciousness: Fully Conscious DTR's/Clonus: DTRs 2+; No Clonus Breath Sounds, Left: Clear and Equal Breath Sounds, Right: Clear and Equal Labor Evaluation Frequency: X4 Monitor Mode: External Duration (sec)2399: 80-110 Quality: Mild Resting Tone [place]: Relaxed Heart Rate FHR Baseline Rate: 125 Monitor Mode: External US Variability: Moderate 6-25 bpm Accelerations: 15X15 Decelerations: None Category: Category I Pain Assessment Pain Scale: 5 Pain Presence: Intermittent Pain Type: Cramping Pain Goal: 2 Datetime: 07/27/2017 23:00 Labor Evaluation Frequency: NONE Monitor Mode: External Resting Tone [place]: Relaxed Contraction Comments: UTERINE IRRITABILITY NOTED Heart Rate FHR Baseline Rate: 130 Monitor Mode: External US Variability: Moderate 6-25 bpm Accelerations: 15X15 Decelerations: None Category: Category I Pain Presence: None/Denies Pain Type: N/A Datetime: 07/27/2017 22:00 DTR's/Clonus: DTRs 2+; No Clonus Labor Evaluation Frequency: X2 Monitor Mode: External Duration (sec)2399: 60-80 Quality: Mild Resting Tone [place]: Relaxed Heart Rate FHR Baseline Rate: 120 Monitor Mode: External US Variability: Moderate 6-25 bpm Accelerations: 15X15 Decelerations: None Category: Category I Pain Presence: None/Denies Pain Type: N/A Datetime: 07/27/2017 21:36 Stage of : Antepartum Datetime: 07/27/2017 21:01 Labor Evaluation Frequency: X1 Monitor Mode: External Duration (sec)2399: 100 Quality: Mild Resting Tone [place]: Relaxed Contraction Comments: UTERINE IRRITABILITY NOTED Heart Rate FHR Baseline Rate: 120 Monitor Mode: External US Variability: Moderate 6-25 bpm Accelerations: 15X15 Decelerations: None Category: Category I Pain Presence: None/Denies Pain Type: N/A Datetime: 07/27/2017 20:06 Stage of : Antepartum Datetime: 07/27/2017 20:00 Labor Evaluation Frequency: NONE Monitor Mode: External Resting Tone [place]: Relaxed Heart Rate FHR Baseline Rate: 120 Monitor Mode: External US Variability: Moderate 6-25 bpm Accelerations: 15X15 Decelerations: None Category: Category I Pain Presence: None/Denies Pain Type: N/A Datetime: 07/27/2017 19:41 Stage of : Antepartum Assessment Type: Ongoing Assessment Maternal Assessment Level of Consciousness: Fully Conscious DTR's/Clonus: DTRs 2+; No Clonus Headache: Denies Blurred Vision: No Respiratory Effort: Unlabored; Regular Rhythm; Equal Expansion Breath Sounds, Left: Clear and Equal Breath Sounds, Right: Clear and Equal Nausea/Vomiting: Denies RUQ Epigastric Pain: Denies Lower Extremities Edema: Left Lower Extremity Degree: None Upper Extremities Edema: None Degree: None Facial Edema: None Temperature Route: Oral Fall Risk Assessment History of Falling: (0) No Secondary Diagnosis: (0) No Ambulatory Aid: (0) Bedrest/Nurse Assist IV Therapy: (0) No Gait: (0) Normal/Bedrest/Immobile Mental Status: (0) Oriented to Own Ability Fall Score: 0 Fall Risk Score Definition: No Risk: No action required Contraction Comments: PT STATES SHE FEELS OCCASSIONAL UC'S Comments: PT STATES + FM Pain Presence: None/Denies Pain Type: N/A Membrane Status: Intact Vaginal Bleeding: None Datetime: 07/27/2017 17:35 Labor Evaluation Frequency: occasional Monitor Mode: External Quality: Mild Resting Tone [place]: Relaxed Heart Rate FHR Baseline Rate: 110 Monitor Mode: External US FHR Baseline Changes: No Baseline Change Variability: Moderate 6-25 bpm Accelerations: 15X15 Decelerations: None Category: Category I Datetime: 07/27/2017 16:20 Labor Evaluation Frequency: occasional Monitor Mode: External Quality: Mild Resting Tone [place]: Relaxed Heart Rate FHR Baseline Rate: 120 FHR Baseline Changes: No Baseline Change Variability: Moderate 6-25 bpm Accelerations: 15X15 Decelerations: None Category: Category I Datetime: 07/27/2017 14:23 Labor Evaluation Frequency: occasional Monitor Mode: External Quality: Mild Resting Tone [place]: Relaxed Heart Rate FHR Baseline Rate: 110 Monitor Mode: External US FHR Baseline Changes: No Baseline Change Variability: Moderate 6-25 bpm Accelerations: 10X10 Decelerations: None Category: Category I Datetime: 07/27/2017 13:36 Labor Evaluation Frequency: occasional Monitor Mode: External Quality: Mild Resting Tone [place]: Relaxed Heart Rate FHR Baseline Rate: 110 FHR Baseline Changes: No Baseline Change Variability: Moderate 6-25 bpm Accelerations: 15X15 Decelerations: None Category: Category I Pain Presence: None/Denies Datetime: 07/27/2017 12:45 Labor Evaluation Frequency: 0 Monitor Mode: External Resting Tone [place]: Relaxed Heart Rate FHR Baseline Rate: 115 Monitor Mode: External US FHR Baseline Changes: No Baseline Change Variability: Moderate 6-25 bpm Accelerations: 15X15 Decelerations: None Category: Category I Pain Presence: None/Denies Datetime: 07/27/2017 11:43 Labor Evaluation Frequency: 1 Monitor Mode: External Duration (sec)2399: 120 Quality: Mild Resting Tone [place]: Relaxed Heart Rate FHR Baseline Rate: 120 Monitor Mode: External US FHR Baseline Changes: No Baseline Change Variability: Moderate 6-25 bpm Accelerations: 15X15 Decelerations: None Category: Category I Datetime: 07/27/2017 10:56 Labor Evaluation Frequency: 6 Monitor Mode: External Duration (sec)2399: 50-120 Quality: Mild Resting Tone [place]: Relaxed Heart Rate FHR Baseline Rate: 115 Monitor Mode: External US FHR Baseline Changes: No Baseline Change Variability: Moderate 6-25 bpm Accelerations: 15X15 Decelerations: None Category: Category I Pain Presence: None/Denies Datetime: 07/27/2017 10:02 Maternal Assessment Level of Consciousness: Fully Conscious DTR's/Clonus: DTRs 2+ Headache: Denies Blurred Vision: No Respiratory Effort: Unlabored Breath Sounds, Left: Clear and Equal Breath Sounds, Right: Clear and Equal Nausea/Vomiting: Denies RUQ Epigastric Pain: Denies Facial Edema: None Datetime: 07/27/2017 10:01 Labor Evaluation Frequency: 2 Monitor Mode: External Duration (sec)2399: 50-70 Quality: Mild Resting Tone [place]: Relaxed Heart Rate FHR Baseline Rate: 115 Monitor Mode: External US FHR Baseline Changes: No Baseline Change Variability: Moderate 6-25 bpm Accelerations: 15X15 Decelerations: None Category: Category I Datetime: 07/27/2017 09:38 Maternal Assessment Level of Consciousness: Fully Conscious DTR's/Clonus: DTRs 2+ Headache: Denies Blurred Vision: No Nausea/Vomiting: Denies RUQ Epigastric Pain: Denies Facial Edema: None Datetime: 07/27/2017 08:59 Labor Evaluation Frequency: 1 Monitor Mode: External Duration (sec)2399: 60 Quality: Mild Resting Tone [place]: Relaxed Heart Rate FHR Baseline Rate: 115 Monitor Mode: External US FHR Baseline Changes: No Baseline Change Variability: Moderate 6-25 bpm Accelerations: 15X15 Decelerations: None Category: Category I Datetime: 07/27/2017 07:41 Maternal Assessment Level of Consciousness: Fully Conscious DTR's/Clonus: DTRs 2+ Headache: Denies Blurred Vision: No RUQ Epigastric Pain: Denies Facial Edema: None Pain Presence: None/Denies Datetime: 07/27/2017 07:39 Labor Evaluation Frequency: 1 Monitor Mode: External Duration (sec)2399: 60 Quality: Mild Resting Tone [place]: Relaxed Heart Rate FHR Baseline Rate: 120 Monitor Mode: External US FHR Baseline Changes: No Baseline Change Variability: Moderate 6-25 bpm Accelerations: 15X15 Decelerations: None Category: Category I Datetime: 07/27/2017 07:35 Assessment Type: Ongoing Assessment Maternal Assessment Level of Consciousness: Fully Conscious DTR's/Clonus: DTRs 2+; No Clonus Headache: Denies Blurred Vision: No Respiratory Effort: Unlabored; Regular Rhythm; Equal Expansion Breath Sounds, Left: Clear and Equal Breath Sounds, Right: Clear and Equal Nausea/Vomiting: Denies RUQ Epigastric Pain: Denies Facial Edema: None Fall Risk Assessment History of Falling: (0) No Secondary Diagnosis: (0) No Ambulatory Aid: (0) Bedrest/Nurse Assist Gait: (0) Normal/Bedrest/Immobile Mental Status: (0) Oriented to Own Ability Datetime: 07/27/2017 06:58 Labor Evaluation Frequency: IRREG Monitor Mode: External Duration (sec)2399: 50-80 Quality: Mild Resting Tone [place]: Relaxed Heart Rate FHR Baseline Rate: 110 Monitor Mode: External US Variability: Moderate 6-25 bpm Accelerations: 15X15 Decelerations: None Category: Category I Pain Presence: None/Denies Pain Type: N/A Datetime: 07/27/2017 06:47 Stage of : Antepartum Maternal Assessment Level of Consciousness: Fully Conscious Contraction Comments: PT STATES SHE FEELS AN OCCASSIONAL STRONG CONTRACTION Comments: PT STATES + FM Pain Presence: None/Denies Pain Type: N/A Membrane Status: Intact Vaginal Bleeding: None Datetime: 07/27/2017 06:45 Monitor Mode: External US Datetime: 07/27/2017 06:22 Stage of : Antepartum Datetime: 07/27/2017 06:00 DTR's/Clonus: DTRs 2+; No Clonus Labor Evaluation Frequency: X7 Monitor Mode: External Duration (sec)2399: 50-110 Quality: Mild Resting Tone [place]: Relaxed Contraction Comments: WITH UTERINE IRRITABILITY Heart Rate FHR Baseline Rate: 110 Monitor Mode: External US Variability: Moderate 6-25 bpm Accelerations: 15X15 Decelerations: None Category: Category I Pain Presence: None/Denies Pain Type: N/A Pain Assessment Comments: PT STATES SHE OCCASSIONALLY FEELS A CONTRACTION. Datetime: 07/27/2017 05:00 Labor Evaluation Frequency: X2 Monitor Mode: External Duration (sec)2399: 40-60 Quality: Mild Resting Tone [place]: Relaxed Heart Rate FHR Baseline Rate: 120 Monitor Mode: External US Variability: Moderate 6-25 bpm Accelerations: 15X15 Decelerations: None Category: Category I Pain Presence: None/Denies Pain Type: N/A Datetime: 07/27/2017 04:00 DTR's/Clonus: DTRs 2+; No Clonus Breath Sounds, Left: Clear and Equal Breath Sounds, Right: Clear and Equal Labor Evaluation Frequency: NONE Monitor Mode: External Resting Tone [place]: Relaxed Heart Rate FHR Baseline Rate: 140 Monitor Mode: External US Variability: Moderate 6-25 bpm Accelerations: 15X15 Decelerations: None Category: Category I Pain Presence: None/Denies Pain Type: N/A Datetime: 07/27/2017 03:00 Labor Evaluation Frequency: NONE Monitor Mode: External Resting Tone [place]: Relaxed Heart Rate FHR Baseline Rate: 130 Monitor Mode: External US Variability: Moderate 6-25 bpm Accelerations: 15X15 Decelerations: None Category: Category I Pain Presence: None/Denies Pain Type: N/A Datetime: 07/27/2017 02:00 DTR's/Clonus: DTRs 2+; No Clonus Labor Evaluation Frequency: NONE Monitor Mode: External Resting Tone [place]: Relaxed Heart Rate FHR Baseline Rate: 130 Monitor Mode: External US Variability: Moderate 6-25 bpm Accelerations: 15X15 Decelerations: None Category: Category I Pain Presence: None/Denies Pain Type: N/A Datetime: 07/27/2017 01:00 Labor Evaluation Frequency: NONE Monitor Mode: External Resting Tone [place]: Relaxed Heart Rate FHR Baseline Rate: 140 Variability: Moderate 6-25 bpm Accelerations: 15X15 Decelerations: None Category: Category I Pain Presence: None/Denies Pain Type: N/A Datetime: 07/27/2017 00:00 Maternal Assessment Level of Consciousness: Fully Conscious DTR's/Clonus: DTRs 2+; No Clonus Breath Sounds, Left: Clear and Equal Breath Sounds, Right: Clear and Equal Labor Evaluation Frequency: X1 Monitor Mode: External Duration (sec)2399: 90 Quality: Mild Resting Tone [place]: Relaxed Heart Rate FHR Baseline Rate: 140 Monitor Mode: External US Variability: Moderate 6-25 bpm Accelerations: 15X15 Decelerations: None Category: Category I Pain Presence: None/Denies Pain Type: N/A Datetime: 07/26/2017 22:00 Stage of : Antepartum Assessment Type: Admission Assessment Vaginal Bleeding: None Maternal Assessment Level of Consciousness: Fully Conscious DTR's/Clonus: DTRs 2+; No Clonus DTR's/Clonus: DTRs 2+; No Clonus Headache: Denies Blurred Vision: No Respiratory Effort: Unlabored; Regular Rhythm; Equal Expansion Breath Sounds, Left: Clear and Equal Breath Sounds, Right: Clear and Equal Nausea/Vomiting: Denies RUQ Epigastric Pain: Denies Lower Extremities Edema: None Degree: None Upper Extremities Edema: None Degree: None Facial Edema: None Fall Risk Assessment History of Falling: (0) No Secondary Diagnosis: (0) No Ambulatory Aid: (0) Bedrest/Nurse Assist IV Therapy: (0) No Gait: (0) Normal/Bedrest/Immobile Mental Status: (0) Oriented to Own Ability Fall Score: 0 Fall Risk Score Definition: No Risk: No action required Labor Evaluation Frequency: NONE Monitor Mode: External Resting Tone [place]: Relaxed Heart Rate FHR Baseline Rate: 140 Monitor Mode: External US Variability: Moderate 6-25 bpm Accelerations: 15X15 Decelerations: None Category: Category I Pain Presence: None/Denies Pain Type: N/A Membrane Status: Intact Datetime: 07/26/2017 20:45 Labor Evaluation Frequency: 7-11 Monitor Mode: External Duration (sec)2399: 30-7 Quality: Mild Pattern: Normal: <= 5 Contractions in 10 Minutes Heart Rate FHR Baseline Rate: 135 Monitor Mode: External US Variability: Moderate 6-25 bpm Accelerations: 15X15 Datetime: 07/26/2017 20:23 Contraction Comments: pt reported feeling short contractions and less cramping Monitor Mode: External US Comments: pt reported increased movement Pain Assessment Pain Scale: 5 Pain Presence: Intermittent Pain Type: Contraction Pain Location: Abdomen Pain Assessment Comments: pt reported feeling less pain Datetime: 07/26/2017 20:19 Assessment Type: Triage Datetime: 07/26/2017 19:39 Labor Evaluation Frequency: 2-9 Monitor Mode: External Duration (sec)2399: 40-60 Quality: Mild Pattern: Normal: <= 5 Contractions in 10 Minutes Heart Rate FHR Baseline Rate: 135 Monitor Mode: External US Variability: Moderate 6-25 bpm Accelerations: 15X15 Category: Category I Datetime: 07/26/2017 18:41 Labor Evaluation Frequency: q2-4 Monitor Mode: External Duration (sec)2399: 50-60 Quality: Mild Resting Tone [place]: Relaxed Heart Rate FHR Baseline Rate: 130 Monitor Mode: External US FHR Baseline Changes: No Baseline Change Variability: Moderate 6-25 bpm Accelerations: 15X15 Decelerations: None Category: Category I Pain Assessment Pain Scale: 7 Pain Type: Contraction Datetime: 07/26/2017 18:20 Labor Evaluation Frequency: q2-5 min Monitor Mode: External Quality: Mild Resting Tone [place]: Relaxed Heart Rate FHR Baseline Rate: 140 FHR Baseline Changes: No Baseline Change Variability: Moderate 6-25 bpm Accelerations: 15X15 Decelerations: None Category: Category I Datetime: 07/26/2017 17:16 Labor Evaluation Frequency: occasional Monitor Mode: External Quality: Mild Resting Tone [place]: Relaxed Heart Rate FHR Baseline Rate: 130 Monitor Mode: External US FHR Baseline Changes: No Baseline Change Variability: Moderate 6-25 bpm Accelerations: 15X15 Decelerations: None Category: Category I Datetime: 07/26/2017 17:03 Contraction Comments: changed toco, feel it might not be operating properly Datetime: 07/26/2017 16:30 Labor Evaluation Frequency: occasional palpated Monitor Mode: External Quality: Mild Resting Tone [place]: Relaxed Contraction Comments: unable to pickle pumper contractions on monitor Heart Rate FHR Baseline Rate: 120 Monitor Mode: External US FHR Baseline Changes: No Baseline Change Variability: Moderate 6-25 bpm Accelerations: 15X15 Decelerations: None Category: Category I Datetime: 07/26/2017 16:06 Pain Type: Cramping Pain Location: Back Datetime: 07/26/2017 16:05 Assessment Type: Triage Maternal Assessment Level of Consciousness: Fully Conscious DTR's/Clonus: DTRs 2+; No Clonus Blurred Vision: No Respiratory Effort: Unlabored; Regular Rhythm; Equal Expansion Breath Sounds, Left: Clear and Equal Breath Sounds, Right: Clear and Equal Nausea/Vomiting: Denies RUQ Epigastric Pain: Denies Facial Edema: None Fall Risk Assessment History of Falling: (0) No Secondary Diagnosis: (0) No Ambulatory Aid: (0) Bedrest/Nurse Assist IV Therapy: (0) No Gait: (0) Normal/Bedrest/Immobile Mental Status: (0) Oriented to Own Ability Fall Score: 0 Fall Risk Score Definition: No Risk: No action required Pain Assessment Pain Scale: 6 Pain Location: Head Pain Goal: 0 Datetime: 07/26/2017 16:03 Time of Arrival: 07/26/2017 16:04 EGA: 33.4 Arrived By: Ambulatory; Wheelchair Chief Complaint: pt received in w/c from triage area to triage in antepartum. contractions amd umang k pain Movement: Present Contractions: Irregular Rupture of Membranes: Denies Vaginal Bleeding: None Vaginal Discharge: Denies Patient Complaints: Contractions; Back Pain Time Provider Notified: 07/26/2017 16:15 Provider Notified: DR. RENAE Datetime: 07/26/2017 15:56 Pain Assessment Pain Scale: 5 Pain Type: Contraction Pain Goal: 0 Datetime: 06/25/2017 00:05 Fall Score: 0 Fall Risk Score Definition: No Risk: No action required Datetime: 06/25/2017 00:02 EGA: 29.0
[2017-08-06] MEDS ORDERED: MAGNESIUM SULFATE 4 GM/100 ML 100 ML IVPB ONE (09:30)
[2017-08-06 09:43] LABS: INR 0.93; PROTIME 12.6 Sec (11.9-14.9)
[2017-08-06 09:44] LABS: PARTIAL THROMBOPLASTIN TIME 28.2 Sec (25.0-35.0)
[2017-08-06] MEDS: MAGNESIUM SULFATE 20 GM/500 ML 500 ML IV SCH ×2 (10:11→20:22)
--- NOTE | 2017-08-06 11:54 | HP ---
Date/Time of Note Date/Time of Note DATE: 08/06/17 TIME: 11:45 OB - History Hx of Present Free Text/Dictation 27 y.o [id number] hx of x2 c/s ,twin gestation at 35w1d with c/o uc's q5 apart last week had x2 dose of bmz and magnesiumsulfate after hydration no significant uterine contractions noted on EFM admitted for prolongation of after lengthy time of discussion ,with patient 's consent. Chief Complaint: uc's Estimated Due Date: Sep 09, 2017 : 4 Para: 2 Spontaneous : 0 Therapeutic : 1 Care: Good Care Ultrasounds: Normal mid trimester US Obstetrical Complications: Other (twin gestation) Past Family/Social History * Past Medical, Surgical, Family and Obstetric Histories reviewed from chart. Blood Type: O+ Rubella: immune RPR/VDRL: Negative GBS Status: Unknown HBsAG: Negative OB Admission Exam Vital Signs Vital Signs Vital Signs Date Time Temp Pulse Resp B/P Pulse Ox O2 Delivery O2 Flow Rate FiO2 08/06/17 00:25 99.2 108 18 127/71 Room Air Physical Exam HEENT: WNL Heart: Rhythm Normal Lungs: Clear, Equal Abdomen: WNL Extremities: Normal Reflexes: Normal Cervical Dilatation: None Effacement: 0% Station: -3 Membranes: Intact Amniotic Fluid: Unevaluable Heart Rate: 140's Accelerations: Accelerations Present Decelerations: No Decelerations Varibility: Moderate Contractions on Admission: >10 Minutes Apart Intensity: Mild Last 72 hours Lab Results CBC & BMP 08/06/17 01:21 OB Assessment/Plan Other Assessment: IUP 35w1d twin gestation PTL Other plan: bed rest mgso4 YNES RENAE MD Aug 06, 2017 11:54
--- NOTE | 2017-08-06 12:48 | RADRPT ---
PROCEDURE: US OB limited. CLINICAL INDICATION: size and weight. Twin . Active labor. TECHNIQUE: Multiple sonographic images of the pelvis were obtained. Transabdominal imaging only w as performed. The images were reviewed on a PACS workstation. COMPARISON: 07/26/2017 FINDINGS: There is a twin viable intrauterine gestation. Fetus A: Cardiac activity is present with 137 beats per minute. There is a cephalic presentation. Measurements were made in order to determine age. The results are as follows: BPD = 8.6 cm. HC = 31.2 cm. AC = 31.3 cm. FL = 6.5 cm. Estimated gestational age of approximately 34 weeks 5 days. The estimated date of delivery is 09/12/2017. The EFW = 2511 g. The placenta is fundal grade II. There is no evidence for an abruption or placenta previa. Fetus B: Cardiac activity is present with 120 beats per minute. There is a transverse maternal right presentation. Measurements were made in order to determine age. The results are as follows: BPD = 8.0 cm. HC = 30.0 cm. AC = 31.8 cm. FL = 6.4 cm. Estimated gestational age of approximately 33 weeks 4 days. The estimated date of delivery is 09/20/2017. The EFW = 2423 g. The placenta is fundal grade II. There is no evidence for an abruption or placenta previa. IMPRESSION: 1. Twin viable intrauterine gestation as described above. RPTAT: QQ .Domenic Patrick MD, Date Time Electronically viewed and signed by .Domenic Patrick MD, on 08/06/2017 12:48 .L/
[2017-08-07] MEDS: LACTATED RINGER'S 1,000 ML IV SCH ×5 (01:15→20:25)
[2017-08-07] MEDS ORDERED: ACETAMINOPHEN 325 MG TAB PO ONE (07:00)
[2017-08-07] MEDS: MAGNESIUM SULFATE 20 GM/500 ML 500 ML IV SCH (07:00)
[2017-08-07] MEDS ORDERED: CITRIC ACID/SODIUM CITRATE 15 ML CUP PO ONE (16:30)
[2017-08-07] MEDS ORDERED: KETOROLAC 30 MG INJ ONE (17:46)
[2017-08-07] MEDS ORDERED: METOCLOPRAMIDE 10 MG INJ ONE (17:46)
[2017-08-07] MEDS ORDERED: morphine SULFATE/PF (10 MG/10 ML) INJ ONE (17:46)
[2017-08-07] MEDS ORDERED: ONDANSETRON 4 MG INJ ONE (17:46)
[2017-08-07] MEDS ORDERED: PHENYLephrine (100 MCG/ML) 5ML SYG ONE (18:03)
[2017-08-07] MEDS ORDERED: EPHEDrine SULFATE 50 MG/5 ML SYG ONE (18:36)
--- NOTE | 2017-08-07 19:21 | QN ---
Documentation Comment despite of tocolysing with mgso4, patient was persistently having uc after reductiion of frequncy of contraction patient was started c/o pain repeat c/s was prepaired YNES RENAE MD Aug 07, 2017 19:21
[2017-08-07] MEDS ORDERED: morphine 2 MG INJ IV PRN ×2 (19:30)
[2017-08-07] MEDS ORDERED: ONDANSETRON 4 MG INJ IV PRN ×4 (19:30→23:00)
[2017-08-07] MEDS ORDERED: morphine 4 MG/ML VIAL IV PRN (19:30)
[2017-08-07] MEDS ORDERED: morphine (1 MG/ML) 10ML SYRINGE IV PRN ×3 (19:30)
[2017-08-07] MEDS ORDERED: NALOXONE (0.4 MG/ML) INJ IV PRN (19:30)
[2017-08-07] MEDS ORDERED: DIPHENHYDRAMINE 50 MG INJ IV PRN ×4 (19:30→23:00)
--- NOTE | 2017-08-07 19:32 | SIPON ---
Date/Time of Note Date/Time of Note DATE: 08/07/17 TIME: 19:30 Operative Report Preoperative Diagnosis IIUP 35w2d twin gestation PTL X2 previous c/s Postoperative Diagnosis same as above X2 male Operation/Procedure Performed RLTC/S Surgeon see signature line employment assistant Tani Anesthesia: spinal Estimated blood loss: other (500) Transfusion Required none Specimen placenta Grafts/Implants none Complications none YNES RENAE MD Aug 07, 2017 19:32
[2017-08-07 22:00] VITALS: BP 135/75; PULSE 97; RESP 18
[2017-08-07] MEDS ORDERED: METHYLERGONOVINE 0.2 MG INJ IM PRN ×2 (23:00)
[2017-08-07] MEDS ORDERED: LANOLIN 7 GM TUBE TOP PRN ×2 (23:00)
[2017-08-07] MEDS ORDERED: OXYTOCIN 30 UNITS/LR 500 ML IV PRN ×2 (23:00)
[2017-08-07] MEDS ORDERED: MISOPROSTOL 200 MCG TAB PR PRN ×2 (23:00)
[2017-08-07] MEDS ORDERED: ZOLPIDEM 5 MG TAB PO PRN ×2 (23:00)
[2017-08-07] MEDS ORDERED: OXYCODONE/ACETAMINOPHEN (5/325) TAB PO PRN ×2 (23:00)
[2017-08-07] MEDS ORDERED: CARBOPROST 250 MCG INJ IM PRN ×2 (23:00)
[2017-08-08] VITALS: BP 117/64; PULSE 98; RESP 18
[2017-08-08] MEDS ORDERED: IBUPROFEN 600 MG TAB PO SCH
[2017-08-08] MEDS: LACTATED RINGER'S 1,000 ML IV SCH (01:46)
[2017-08-08] MEDS: KETOROLAC 30 MG INJ IV PRN ×3 (01:56→15:09)
[2017-08-08 04:00] VITALS: BP 119/76; PULSE 97; RESP 18
[2017-08-08] MEDS: IBUPROFEN 600 MG TAB PO SCH ×4 (06:00→18:00)
[2017-08-08 08:10] VITALS: BP 111/65; PULSE 84; RESP 19
--- NOTE | 2017-08-08 08:10 | PN ---
Date/Time of Note Date/Time of Note DATE: 08/08/17 TIME: 08:08 Assessment/Plan VTE Prophylaxis VTE Prophylaxis Intervention: ambulation Subjective 24 Hr Interval Summary Free Text/Dictation Anesthesia note: A 27 year female s/p spinal duramorph pod#1 is dong fine, pain is controlled, no N/V, iyching, headache, neural deficit or back pain, back is clean, ni inflammation, care per surgery team Exam/Review of Systems Vital Signs Vitals Vital Signs Date Time Temp Pulse Resp B/P Pulse Ox O2 Delivery O2 Flow Rate FiO2 08/08/17 05:53 95 21 08/08/17 04:00 98.8 97 18 119/76 Room Air Intake and Output 08/07/17 08/07/17 08/08/17 14:59 22:59 06:59 Intake Total 1125 ml 675 ml Output Total 900 ml 600 ml Balance 225 ml 75 ml Results Result Diagram: 08/06/17 0121 Results 24 hrs Laboratory Tests Test 08/07/17 12:20 Magnesium Level 5.9 *H Medications Medications Current Medications Naloxone HCl (Narcan) 0.1 mg Q2M PRN IV FOR RESP RATE 8 OR LESS; Start at 19:30; Stop 08/08/17 at 19:29 Ketorolac Tromethamine (Toradol) 30 mg Q6H PRN IV PAIN Last administered on t 01:56; Admin Dose 30 MG; Start 08/07/17 at 19:30; Stop 08/08/17 at 19: 29 Morphine Sulfate (morphine) 2 mg Q2 PRN IV BREAKTHROUGH PAIN; Start 08/07/17 at 19:30; Stop 08/08/17 at 19:29 Morphine Sulfate (morphine) 2 mg Q3H PRN IV PAIN LEVEL 1-5; Start 08/07/17 at 19:30; Stop 08/08/17 at 19:29 Morphine Sulfate (morphine) 4 mg Q3H PRN IV PAIN LEVEL 6-10; Start 08/07/17 at 19:30; Stop 08/08/17 at 19:29 Oxycodone/ Acetaminophen (Percocet (5/ 325)) 1 tab Q4H PRN PO PAIN LEVEL 4-6; Start 08/07/17 at 23:00 Oxycodone/ Acetaminophen (Percocet (5/ 325)) 2 tab Q4H PRN PO PAIN LEVEL 7-10; Start 08/07/17 at 23:00 Carboprost Tromethamine (Hemabate) 250 mcg ONCE PRN IM VAGINAL BLEEDING; Start 08/07/17 at 23:00 Ibuprofen (Motrin) 600 mg Q6 PO ; Start 08/08/17 at 00:00 Simethicone (Mylicon) 160 mg Q8H PRN PO DISTENSION/GAS/BLOATING; Start at 23:00 Senna/Docusate Sodium (Senokot-S) 1 tab BID PO ; Start 08/08/17 at 09:00 Diphtheria/ Tetanus/Acell Pertussis 0.5 ml 0.5 ml ONCE ONCE IM* ; Start at 09:00; Stop 08/10/17 at 09:01 Oxytocin/Lactated Ringer's 500 ml @ 0 mls/hr ONCE PRN IV For Hemorrhage Management; Start 08/07/17 at 23:00 Methylergonovine Maleate (Methergine) 0.2 mg ONCE PRN IM VAGINAL BLEEDING; Start 08/07/17 at 23:00 Misoprostol (Cytotec) 1,000 mcg ONCE PRN [place] VAGINAL BLEEDING; Start 08/07/17 at 23:00 Diphenhydramine HCl (Benadryl) 25 mg Q6H PRN IV PRURITUS; Start 08/07/17 at 23 :00 Ondansetron HCl (Zofran Inj) 4 mg Q6H PRN IV NAUSEA AND/OR VOMITING; Start 07/14 at 23:00 Zolpidem Tartrate (Ambien) 10 mg QHS PRN PO INSOMNIA; Start 08/07/17 at 23:00 FELTON BLACK MD Aug 08, 2017 08:10
--- NOTE | 2017-08-08 08:19 | PN ---
Date/Time of Note Date/Time of Note DATE: 08/08/17 TIME: : Assessment/Plan VTE Prophylaxis VTE Prophylaxis Intervention: ambulation Subjective 24 Hr Interval Summary Free Text/Dictation Anesthesia note: A 27 year female s/p duramorph spinal is doing well, pain is controlled, no N/V , itching, headache, neural deficit, back pain. back is clean no inflammation.care per surgery team Exam/Review of Systems Vital Signs Vitals Vital Signs Date Time Temp Pulse Resp B/P Pulse Ox O2 Delivery O2 Flow Rate FiO2 08/08/17 05:53 95 21 08/08/17 04:00 98.8 97 18 119/76 Room Air Intake and Output 08/07/17 08/07/17 08/08/17 15:00 23:00 07:00 Intake Total 1025 ml 650 ml Output Total 900 ml 600 ml Balance 125 ml 50 ml Results Result Diagram: 08/06/17 0121 Results 24 hrs Laboratory Tests Test 08/07/17 12:20 Magnesium Level 5.9 *H Medications Medications Current Medications Naloxone HCl (Narcan) 0.1 mg Q2M PRN IV FOR RESP RATE 8 OR LESS; Start at 19:30; Stop 08/08/17 at 19:29 Ketorolac Tromethamine (Toradol) 30 mg Q6H PRN IV PAIN Last administered on t 01:56; Admin Dose 30 MG; Start 08/07/17 at 19:30; Stop 08/08/17 at 19: 29 Morphine Sulfate (morphine) 2 mg Q2 PRN IV BREAKTHROUGH PAIN; Start 08/07/17 at 19:30; Stop 08/08/17 at 19:29 Morphine Sulfate (morphine) 2 mg Q3H PRN IV PAIN LEVEL 1-5; Start 08/07/17 at 19:30; Stop 08/08/17 at 19:29 Morphine Sulfate (morphine) 4 mg Q3H PRN IV PAIN LEVEL 6-10; Start 08/07/17 at 19:30; Stop 08/08/17 at 19:29 Oxycodone/ Acetaminophen (Percocet (5/ 325)) 1 tab Q4H PRN PO PAIN LEVEL 4-6; Start 08/07/17 at 23:00 Oxycodone/ Acetaminophen (Percocet (5/ 325)) 2 tab Q4H PRN PO PAIN LEVEL 7-10; Start 08/07/17 at 23:00 Carboprost Tromethamine (Hemabate) 250 mcg ONCE PRN IM VAGINAL BLEEDING; Start 08/07/17 at 23:00 Ibuprofen (Motrin) 600 mg Q6 PO ; Start 08/08/17 at 00:00 Simethicone (Mylicon) 160 mg Q8H PRN PO DISTENSION/GAS/BLOATING; Start at 23:00 Senna/Docusate Sodium (Senokot-S) 1 tab BID PO ; Start 08/08/17 at 09:00 Diphtheria/ Tetanus/Acell Pertussis 0.5 ml 0.5 ml ONCE ONCE IM* ; Start at 09:00; Stop 08/10/17 at 09:01 Oxytocin/Lactated Ringer's 500 ml @ 0 mls/hr ONCE PRN IV For Hemorrhage Management; Start 08/07/17 at 23:00 Methylergonovine Maleate (Methergine) 0.2 mg ONCE PRN IM VAGINAL BLEEDING; Start 08/07/17 at 23:00 Misoprostol (Cytotec) 1,000 mcg ONCE PRN [place] VAGINAL BLEEDING; Start 08/07/17 at 23:00 Diphenhydramine HCl (Benadryl) 25 mg Q6H PRN IV PRURITUS; Start 08/07/17 at 23 :00 Ondansetron HCl (Zofran Inj) 4 mg Q6H PRN IV NAUSEA AND/OR VOMITING; Start 07/14 at 23:00 Zolpidem Tartrate (Ambien) 10 mg QHS PRN PO INSOMNIA; Start 08/07/17 at 23:00 FELTON BLACK MD Aug 08, 2017 08:19
[2017-08-08] MEDS ORDERED: SENNA/DOCUSATE NA (8.6MG/50MG) TAB PO SCH (09:00)
[2017-08-08] MEDS: SENNA/DOCUSATE NA (8.6MG/50MG) TAB PO SCH ×2 (09:42→20:43)
[2017-08-08 10:49] LABS: ABNORMAL IP MESSAGE 1; BASOPHIL # 0.1 10^3/ul (0.0-0.1); BASOPHILS % 0.7 % (0.0-2.0); EOSINOPHILS # 0.1 10^3/ul (0.0-0.5); EOSINOPHILS % 0.9 % (0.0-7.0); HEMATOCRIT 32.4 % (37.0-47.0); HEMOGLOBIN 10.2 g/dl (12.0-16.0); LYMPHOCYTES % 13.4 % (15.0-51.0); MEAN CORPUSCULAR HEMOGLOBIN 26.8 pg (29.0-33.0); MEAN CORPUSCULAR HGB CONC 31.5 g/dl (32.0-37.0); MEAN PLATELET VOLUME 13.2 fl (7.4-10.4); MONOCYTE # 1.3 10^3/ul (0.3-0.9); MONOCYTES % 8.6 % (0.0-11.0); NEUTROPHIL # 11.4 10^3/ul (1.6-7.5); NEUTROPHILS % 74.6 % (39.0-77.0); PLATELET COUNT 170 10^3/UL (140-415); RED BLOOD COUNT 3.81 10^6/ul (4.20-5.40); WHITE BLOOD COUNT 15.2 10^3/ul (4.8-10.8)
[2017-08-08 10:54] LABS: POSITIVE DIFF @See below
[2017-08-08 12:00] VITALS: BP 117/58; PULSE 84; RESP 19
[2017-08-08] MEDS ORDERED: LACTATED RINGER'S 1,000 ML IV SCH (12:00)
[2017-08-08 16:12] VITALS: BP 103/59; PULSE 78; RESP 18
--- NOTE | 2017-08-08 17:53 | OPR ---
DATE OF OPERATION: 08/08/2017 PREOPERATIVE DIAGNOSIS: 35 weeks 2 days with a twin gestation, labor, status post betamethasone treatment and magnesium sulfate treatment. POSTOPERATIVE DIAGNOSIS: 35 weeks 2 days with a twin gestation, labor, status pos t betamethasone treatment and magnesium sulfate treatment. Delivered normal male infants, 2 of them. One is ____, one is ____. was 9, 9, 9, 9. PROCEDURE: Repeat low transverse section. ANESTHESIA: Spinal. ANESTHESIOLOGIST: Kitty Heller MD SURGEON: Angelica Nino MD DIGITAL MARKETING PROJECT MANAGER: Jamie Freire MD ESTIMATED BLOOD LOSS: 600 mL. PROCEDURE: Under proper induction of spinal anesthesia, the patient was placed in the frog position . Baxter catheter was introduced into the bladder under sterile conditions and repositioned to supin e. Abdominal wall was prepped and draped in usual aseptic manner. A transverse incision was made s lightly above the previous scar tissue. Incision was carried down through the subcutaneous tissue, which was incised transversely the length of the incision. Fascial flap was created by blunt and sh alexsander dissection of tendinous attachment to rectus muscles were split in midline and peritoneal cavity was entered. Low portion of the uterus was exposed. There is no apparent adhesion noted except th ere was a very thin-walled low segment. An incision transversely made above the previous incision, reached the amniotic membrane, ruptured, revealed clear amniotic fluid, and normal male infa nt was born from the occiput transverse position with one time assist with [place]. Mouth and nose wer e cleaned and cord was clamped and cut and handed to the respiratory care personnel. Then, second b ag was ruptured and clear fluid and another male was born from the occiput anterior p osition. Mouth and nose were cleaned and cord was clamped and cut, handed to the respiratory care p [facility] for further care. Cord blood was obtained from each cord and placenta was removed and uter ine cavity was explored after uterus was exteriorized. Incision was closed using #1 chromic catgut in continuous manner and second layer reinforcement with 0 chromic catgut. No bleeder noted. Proce dure completed and uterus was relocated into abdominal cavity. Uterine incision was checked for the bleeding, which was intact. Sponge count taken and instrument count correct. The 1 piece of Surgi maty laid on the uterine incisional site and parietal peritoneum closed using 0 chromic catgut in con tinuous manner, muscle closed with 0 chromic catgut in continuous manner. Fascia closed with #1 Eliel ryl in continuous manner in 2 segments. Subcutaneous tissue irrigated with water. This layer was a pproximated with 2-0 plain in continuous manner. Skin closed with Insorb. Pressure dressing applie d after Steri-Strips were applied. The patient withstood the procedure well and was sent to recover y room in stable condition. URINE OUTPUT: 120 mL. COUNTS: Final sponge count, instrument count, and needle count correct. Dictated By: ANGELICA JEFFERSON/DALE Conf#: [id number] DID#: [id number]
[2017-08-08 20:00] VITALS: BP 128/72; PULSE 87; RESP 20
[2017-08-08] MEDS: OXYCODONE/ACETAMINOPHEN (5/325) TAB PO PRN (20:43)
[2017-08-09] MEDS: IBUPROFEN 600 MG TAB PO SCH ×5 (00:06→23:50)
[2017-08-09] MEDS: OXYCODONE/ACETAMINOPHEN (5/325) TAB PO PRN ×7 (01:34→22:14)
[2017-08-09 04:00] VITALS: BP 120/66; PULSE 79; RESP 20
[2017-08-09] MEDS: SENNA/DOCUSATE NA (8.6MG/50MG) TAB PO SCH ×2 (08:12→20:40)
[2017-08-09 08:20] VITALS: BP 115/57; PULSE 57; RESP 19
[2017-08-09 16:00] VITALS: BP 118/75; PULSE 87; RESP 20
[2017-08-09 20:00] VITALS: BP 116/61; PULSE 90; RESP 18
--- NOTE | 2017-08-09 23:02 | PN ---
Date/Time of Note Date/Time of Note DATE: 08/09/17 TIME: 22:57 OB Subjective Subjective Subjective passing very little passing gas ( I was here yesterday somehow note wasnt input) OB Objective Objective Objective vss afebrile abdomen distended with tympanic wound dry lochia min ext ++ pitting edema calf neg for tenderness HEENT: WNL Heart: Rhythm Normal Lungs: Clear, Equal Abdomen: WNL Extremities: Normal Reflexes: Normal OB Assessment/Plan Other Assessment: s/p RC/S #2 stable Other plan: as ordered YNES RENAE MD Aug 09, 2017 23:02
[2017-08-10 04:00] VITALS: BP 128/74; PULSE 77; RESP 18
[2017-08-10] MEDS: IBUPROFEN 600 MG TAB PO SCH ×2 (05:42→12:15)
[2017-08-10] MEDS: OXYCODONE/ACETAMINOPHEN (5/325) TAB PO PRN ×3 (05:47→14:37)
[2017-08-10 09:00] VITALS: BP 124/81; PULSE 97; RESP 18
[2017-08-10] MEDS ORDERED: DIPHTH/TET/ACEL PERTUSS (ADULT) 0.5 ML VIAL IM* ONE ×2 (09:00)
[2017-08-10] MEDS: SENNA/DOCUSATE NA (8.6MG/50MG) TAB PO SCH (09:35)
--- NOTE | 2017-08-10 16:16 | PD.PPDC ---
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
--- NOTE | 2017-08-10 16:42 | DS ---
Date/Time of Note Date/Time of Note DATE: 08/10/17 TIME: 16:40 Obstetrical Discharge Record Final Diagnosis Final Diagnosis: delivered Other Final Diagnosis IUP 35w2d twin gestation PTL x2 previous cc/s Section Section: Repeat Complications Augmentation: No Induction: No Tocolytics: Magnesium Sulfate Rupture of Membranes: No Condition on Discharge Physical Assessment Last Vitals: vss afebrile Voiding: Yes Bowel Movement: Yes Breast: Soft, non-tender Fundus: Firm Abdomen and Incision: soft still somewhat tympanic wound dry Calf Tenderness: No Patient Condition: Stable YNES RENAE MD Aug 10, 2017 16:42
== END 2017-08-10 17:15 | disposition home or self-care (01) | DRG 765 ==
LOC: OBT 23:53 → L-D 23:54 → OBT 08-06 04:17 → L-D 08-06 04:25 → PP1 08-07 21:53
PROVIDERS: ADMIT Obstetrics & Gynecology; ATTEND Obstetrics & Gynecology
PROC: 3E033VJ Introduction of Other Hormone into Peripheral Vein, Percutaneous Approach (ICD-10-PCS; 2017-08-07)
PROC: 10D00Z1 Extraction of Products of Conception, Low, Open Approach (ICD-10-PCS; principal; 2017-08-07 17:00)
DX: O34.211 Maternal care for low transverse scar from previous cesarean delivery (principal); O60.14X0 Preterm labor third trimester with preterm delivery third trimester, not applicable or unspecified; O30.003 Twin pregnancy, unspecified number of placenta and unspecified number of amniotic sacs, third trimester; Z37.0 Single live birth; Z3A.35 35 weeks gestation of pregnancy
CPT/HCPCS: 36415; 76815; 81003; 83735; 85025; 85610; 85730; 86592; 86850; 86900; 86901; 87340; 88307; 90715; 94760; 96360; 99464; G0463; J0290; J0690; J1885; J2210; J2274; J2370; J2405; J2590; J2765; J3475; J7120

== ENCOUNTER 2017-08-12 15:58 | Emergency (ER) | payer OTHER ==
[~2017-08-12] VITALS: Ht 160 cm; Wt 88.4 kg
[~2017-08-12 15:58] MED LIST changes: -ASPI-535 PO; -NIFE10CA19 PO
[2017-08-12 16:03] VITALS: Ht 160 cm; Wt 88.4 kg
[2017-08-12] MEDS ORDERED: PRED20TA PO (16:53)
[2017-08-12] MEDS ORDERED: LACR35O RIGHT EYE (16:53)
--- NOTE | 2017-08-12 18:13 | ERD ---
ER Documentation Chief Complaint Chief Complaint headcahe with rt side facial numbness since 0500 am , rt side facial droop HPI Patient is a 27-year-old female who presents with right-sided facial droop. She said that she had a headache last night and that "her I felt weird". The right eye and right side of her face. She said that she could not keep water in her mouth. She said that she had right-sided facial drooping. She recently delivered twins via on August 08. Her primary doctor is Dr. Frias and her OB doctor is Dr. Nino. She has had no treatment as of yet. ROS All systems reviewed and are negative except as per history of present illness. Medications Home Meds Active Scripts Mineral Oil/Lanolin Oil (Lacri-Lube) 3.5 Gm Oint, 1 APPLIC RIGHT EYE NEEDED for DRY EYES, #1 EA Prov:SHAI LIEBERMAN MD 08/12/17 Prednisone* (Prednisone*) 20 Mg Tab, 60 MG PO DAILY for 5 Days, TAB Prov:SHAI LIEBERMAN MD 08/12/17 Reported Medications Vits W-Ca,Fe,Fa(<1MG) () 1 Tab Tablet, 1 TAB PO DAILY 10/12/12 Discontinued Reported Medications Aspirin Ec (Aspir 81) 81 Mg Tablet.dr, 81 MG PO DAILY, #30 TAB 06/24/17 Discontinued Scripts Nifedipine* (Procardia*) 10 Mg Capsule, 10 MG PO Q6 for 14 Days, CAP Prov:JOVAN UNGER MD 07/29/17 Allergies Allergies: Coded Allergies: No Known Drug Allergy (Verified Allergy, Unknown, 07/26/17) PMhx/Soc History of Surgery: Yes (C/S X1) Anesthesia Reaction: No Hx Neurological Disorder: No Hx Respiratory Disorders: No Hx Cardiac Disorders: No Hx Psychiatric Problems: No Hx Miscellaneous Medical Probl: No Hx Alcohol Use: No Hx Substance Use: No Hx Tobacco Use: No Smoking Status: Never smoker FmHx Family History: diabetes Physical Exam Vitals Vital Signs Date Time Temp Pulse Resp B/P Pulse Ox O2 Delivery O2 Flow Rate FiO2 08/12/17 16:03 98.1 85 18 141/74 98 Physical Exam Const: No acute distress Head: Atraumatic Eyes: Normal Conjunctiva ENT: Right sided facial droop Neck: Full range of motion..~ No meningismus. Resp: Clear to auscultation bilaterally Cardio: Regular rate and rhythm, no murmurs Abd: Soft, non tender, non distended. Normal bowel sounds Skin: No petechiae or rashes Back: No midline or flank tenderness Ext: No cyanosis, or edema Neur: Awake and alert, right-sided facial droop which involves the right eyebrow, other cranial nerves are intact, strength is 5 out of 5 in all 4 extremities, no slurred speech, appears to be a Singh's palsy of the right face Psych: Normal Mood and Affect Procedures/MDM Patient is a 27-year-old female who presents with an acute Singh's palsy. At this point I doubt stroke or intracranial hemorrhage. I believe the risks of doing a CT scan of the brain outweigh the benefits. There is no sign of cold sores and she denies any previous herpes infection. The patient has had no travel to areas with Lyme disease. The patient is otherwise well-appearing. The patient will be discharged with prescription for prednisone and Lacri-Lube. She can return for any worsening symptoms. She should follow-up with her primary doctor within 24-48 hours for reevaluation. Departure Diagnosis: Primary Impression: Singh's palsy Additional Impression: Numbness Condition: Fair Patient Instructions: Singh's Palsy Referrals: ESTELITA FRIAS Additional Instructions: Call your primary care doctor TOMORROW for an appointment during the next 1-2 days.See the doctor sooner or return here if your condition worsens before your appointment time. SHAI LIEBERMAN MD Aug 12, 2017 18:13
== END 2017-08-12 17:37 | disposition home or self-care (01) ==
LOC: E/R 15:58
DX: G51.0 Bell's palsy (principal); Z79.82 Long term (current) use of aspirin
CPT/HCPCS: 99283

== ENCOUNTER 2018-02-01 07:42 | Day surgery (SDC) | END 2018-02-01 15:04 | disposition home or self-care (01) ==